=== PATIENT | male | born 1990 | race Caucasian/White ===

== ENCOUNTER → 2018-11-27 | Outpatient (CLI) | payer OTHER ==
--- NOTE | ~2018-11-27 | EKG ---
[place], [place] ELECTROCARDIOGRAM REPORT NAME: NELSON DUMONT UNIT #: [id number] ROOM: DOCTOR: EPIPHANY DRAFT REPORT BIRTHDATE: [birth year] [facility] Test Date: 2018-11-27 Test Time: 16:56:04 Pat Name: NELSON DUMONT Department: Room: Gender: M [employer]: : 1990 Requested By: ARMANDO NIETO Order Number: [id number] Reading MD: Jerry Simms MD Measurements Intervals [place] Rate: 72 P: 45 HI: 126 QRS: 62 QRSD: 88 T: 36 QT: 365 QTc: 400 Interpretive Statements Sinus rhythm Baseline wander in lead(s) I,III,aVL,V5 No previous ECG available for comparison Electronically Signed On 11-29-2018 15:48:43 PDT by Jerry Simms MD CM:EKGRPT:ELECTROCARDIOGRAM REPORT [id number] ARMANDO NIETO EPIPHANY DRAFT REPORT ARMANDO NIETO
== END | disposition home or self-care (01) ==
LOC: CARD 16:42
DX: R07.89 Other chest pain (principal)

== ENCOUNTER → 2019-07-18 | Outpatient (CLI) | payer OTHER | END | disposition home or self-care (01) | LOC: CARD 13:40 | DX: R00.2 Palpitations (principal); R07.9 Chest pain, unspecified ==

== ENCOUNTER → 2020-02-14 | Outpatient (CLI) | payer OTHER | END | disposition home or self-care (01) | LOC: RAD 12:38 | DX: M54.42 Lumbago with sciatica, left side (principal) ==

== ENCOUNTER → 2021-03-10 | Outpatient (CLI) | payer OTHER ==
[2021-03-17 17:08] LABS: IGG P18 AB Absent (.); IGG P23 AB Present (.); IGG P28 AB Absent (.); IGG P30 AB Absent (.); IGG P39 AB Absent (.); IGG P41 AB Present (.); IGG P45 AB Absent (.); IGG P58 AB Absent (.); IGG P63 AB Absent (.); IGG P66 AB Absent (.); IGM P23 AB Present (.); IGM P39 AB Absent (.); IGM P41 AB Absent (.); LYME IGG WB INTERPRETATION Negative (.); LYME IGM WB INTERPRETATION Negative (.); LYME REFLEX CHARGE CHG
== END | disposition home or self-care (01) ==
LOC: LAB 08:09
PROVIDERS: ATTEND Nurse Practitioner Family
DX: A69.20 Lyme disease, unspecified (principal)